=== PATIENT | male | born 1945 | race Caucasian/White ===

== ENCOUNTER 2017-10-18 05:19 | Inpatient (IN) | payer MEDICARE, OTHER ==
[2017-10-12 13:54] LABS: BASOPHILS % (AUTO) 0.3 % (0-1); EOSINOPHILS # (AUTO) 0.3 X10'3 (0-0.9); EOSINOPHILS % (AUTO) 3.2 % (0-6); LYMPHOCYTES % (AUTO) 24.6 % (21-51); MEAN CORPUSCULAR HEMOGLOBIN 28.2 PG (27.0-31.0); MEAN CORPUSCULAR HGB CONC 34.1 % (33.0-36.5); MEAN CORPUSCULAR VOLUME 82.5 FL (78-98); MEAN PLATELET VOLUME 9.8 FL (7.4-10.4); MONOCYTES # (AUTO) 0.5 X10'3 (0-0.9); MONOCYTES % (AUTO) 5.6 % (2-12); NEUTROPHILS # (AUTO) 5.4 X10'3 (1.8-7.7); NEUTROPHILS % (AUTO) 66.3 % (42-75); PRE OP HEMATOCRIT 47.3 % (42.0-52.0); PRE OP HEMOGLOBIN 16.1 g/dL (14.0-17.9); PRE OP PLATELET COUNT 186 X10'3 (140-440); RED BLOOD COUNT 5.73 X10'6 (4.70-6.10); RED CELL DISTRIBUTION WIDTH 13.8 % (11.5-14.5)
[2017-10-12 13:59] LABS: CLARITY,URINE CLEAR (Clear); COLOR,URINE YELLOW (Yellow); GLUCOSE, URINE NEGATIVE (Neg); KETONES,URINE NEGATIVE (Neg); LEUKOCYTE ESTERASE ,URINE NEGATIVE (Neg); NITRITES, URINE NEGATIVE (Neg); OCCULT BLOOD,URINE NEGATIVE (Neg); PH,URINE 5.5 (4.8-8.0); PROTEIN,URINE NEGATIVE (Neg); UROBILINOGEN,URINE 0.2 E.U/dL (0.2-1.0)
[2017-10-12 14:05] LABS: UA COLLECTION TYPE CLN CATCH MIDSTREAM
[2017-10-12 14:18] LABS: ALBUMIN 3.9 G/DL (3.4-5.0); ALKALINE PHOSPHATASE 69 IU/L (46-116); BLOOD UREA NITROGEN 33 MG/DL (7-18); BUN/CREATININE RATIO 21.3 (5.4-32.0); CHLORIDE 105 MMOL/L (99-107); CREATININE 1.55 MG/DL (0.60-1.10); PRE OP ALT 48 U/L (30-65); PRE OP ANION GAP 9 (8-16); PRE OP AST 20 U/L (10-37); PRE OP BILIRUB, TOTAL 0.5 MG/DL (0.0-1.0); PRE OP GLUCOSE 109 MG/DL (70-104); PRE OP POTASSIUM 4.5 MMOL/L (3.4-5.1); PRE OP SODIUM 139 MMOL/L (135-145); TOTAL CARBON DIOXIDE 25.4 MMOL/L (24-32); TOTAL PROTEIN 7.8 G/DL (6.4-8.2); eGFR 45 ML/MIN
[2017-10-18] VITALS (23 sets, daily range): BP systolic 83–147; BP diastolic 52–85
[~2017-10-18] VITALS: Ht 170.2 cm; Wt 139.9 kg
[~2017-10-18 05:19] MED LIST: AMLO10TA PO; BENA40TA2 PO; HYDR50TA3 PO; METO-395 PO; ringers solution, lacted 1,000 ML IV SCH
[2017-10-18] MEDS ORDERED: metoclopramide 5 mg/ml inj IV ONE (05:30)
[2017-10-18] MEDS ORDERED: tranexamic acid inj. 1,000 MG in normal saline 100ml IV soln 90 ML IV ONE (05:30)
[2017-10-18] MEDS ORDERED: acetaminophen 325mg tablet PO ONE (05:30)
[2017-10-18] MEDS ORDERED: oxyCODONE SR 10mg (sust. release) tab PO ONE (05:30)
[2017-10-18] MEDS ORDERED: gabapentin 300mg capsule PO ONE (05:30)
[2017-10-18] MEDS ORDERED: famotidine 20mg tablet PO ONE (05:30)
[2017-10-18] MEDS ORDERED: vancomycin inj 1,500 MG in normal saline 300ml IV soln IV ONE (05:30)
[2017-10-18] MEDS ORDERED: DOCUMENT DATE & TIME OF BETA-BLOCKER PO ONE (05:30)
[2017-10-18] MEDS ORDERED: ceFAZolin inj. 3,000 MG in dextrose 5%-water 100 ML IV ONE (05:30)
[2017-10-18] MEDS ORDERED: LIDOcaine 1% (10mg/ml) 2ml vial ONE (05:37)
[2017-10-18] MEDS ORDERED: ROPIVAcaine 0.5% (5mg/ml) 30ml vial ONE (06:53)
[2017-10-18] MEDS ORDERED: ceFAZolin 1000mg inj ONE (06:53)
[2017-10-18] MEDS ORDERED: ketorolac trometh. 30mg/ml inj. ONE (06:53)
[2017-10-18] MEDS ORDERED: vancomycin 1,000mg inj ONE (06:53)
[2017-10-18] MEDS ORDERED: morphine /PF 1mg/ml 10ml inj. ONE ×2 (07:00→07:52)
[2017-10-18] MEDS ORDERED: cloNIDine hcl/PF 100mcg/ml inj ONE (07:27)
[2017-10-18] MEDS ORDERED: MIDAZolam 1mg/ml 10ml vial ONE (07:33)
[2017-10-18] MEDS ORDERED: fentaNYL/PF 50MCG/1 ML 2ML syringe ONE (07:33)
[2017-10-18] MEDS ORDERED: ringers solution, lacted 1,000 ML IV SCH (08:53)
[2017-10-18] MEDS ORDERED: naloxone 2mg/2ml inj 2 MG in normal saline 500ml IV soln 500 ML IV PRN (08:54)
[2017-10-18] MEDS ORDERED: morphine 4 MG/ML inj SYRINge IV PRN ×2 (08:55)
[2017-10-18] MEDS ORDERED: proCHLORperazine 10 MG/2 ml inj IV PRN (08:55)
[2017-10-18] MEDS ORDERED: ondansetron/PF 4mg/2ml inj IV PRN ×3 (08:55→10:30)
[2017-10-18] MEDS ORDERED: meperidine/PF 50mg/ml syringe IV PRN ×3 (08:55)
[2017-10-18] MEDS ORDERED: diphenhydrAMINE 50 mg/ml inj IV PRN (08:55)
[2017-10-18] MEDS ORDERED: dexamethasone sod phosphate 4mg/ml inj. ONE (10:25)
[2017-10-18] MEDS ORDERED: glycopyrrolate 0.2mg/ml inj ONE (10:25)
[2017-10-18] MEDS ORDERED: propofol 10mg/ml 20ml vial IV ONE (10:25)
[2017-10-18] MEDS ORDERED: rocuronium 10mg/ml inj IV ONE (10:25)
[2017-10-18] MEDS ORDERED: ePHEDrine 50MG/ML INJ. ONE (10:25)
[2017-10-18] MEDS ORDERED: neostigmine methylsulfate 1 MG/ML 10ml vial ONE (10:25)
[2017-10-18] MEDS ORDERED: sevoflurane 250ml liquid IH ONE (10:25)
[2017-10-18] MEDS ORDERED: ondansetron/PF 4mg/2ml inj ONE (10:25)
[2017-10-18] MEDS ORDERED: bisacodyl 10mg suppository rectal RC PRN (10:30)
[2017-10-18] MEDS ORDERED: diphenhydrAMINE 25mg capsule PO PRN ×2 (10:30)
[2017-10-18] MEDS ORDERED: oxyCODONE IR 5mg (immed. release) tablet PO PRN (10:30)
[2017-10-18] MEDS ORDERED: HYDROmorphone inj. 0.5 MG/0.5 ML DISP.SYRIN IV PRN ×2 (10:30)
[2017-10-18] MEDS ORDERED: acetaminophen 325mg tablet PO PRN (10:30)
[2017-10-18] MEDS ORDERED: magnesium hydroxide 30ml (MOM) UD suspension PO PRN (10:30)
[2017-10-18] MEDS ORDERED: tranexamic acid inj. 1,400 MG in normal saline 100ml IV soln 100 ML IV ONE (13:00)
[2017-10-18] MEDS: gabapentin 300mg capsule PO SCH ×2 (14:21→21:00)
[2017-10-18] MEDS: acetaminophen 325mg tablet PO SCH ×2 (14:22→20:00)
[2017-10-18] MEDS: ceFAZolin 1GM/D5W- ADD-VANTAGE 50 ML IV SCH (17:10)
[2017-10-18] MEDS: potassium cl 20mEq in 1/2 NS 1,000 ML IV SCH ×2 (17:11→18:27)
[2017-10-18] MEDS: celeCOXIB 100mg capsule PO SCH (20:00)
[2017-10-18] MEDS ORDERED: vancomycin/NS 1 GM ADD-VANTAGE 250 ML IV SCH (20:00)
[2017-10-18] MEDS: sennosides 8.6mg tablet PO SCH (21:00)
[2017-10-19] MEDS: ceFAZolin 1GM/D5W- ADD-VANTAGE 50 ML IV SCH (00:11)
[2017-10-19 02:00] VITALS: BP 124/74
[2017-10-19 02:16] VITALS: BP 124/74
[2017-10-19] MEDS: potassium cl 20mEq in 1/2 NS 1,000 ML IV SCH ×3 (02:19→18:27)
[2017-10-19] MEDS: acetaminophen 325mg tablet PO SCH ×4 (02:23→22:09)
[2017-10-19 06:00] VITALS: BP_SYST 120; BP_SYST 131; BP_DIAS 66; BP_DIAS 74
[2017-10-19 06:13] LABS: BASOPHILS % (AUTO) 0 % (0-1); EOSINOPHILS # (AUTO) 0.2 X10'3 (0-0.9); EOSINOPHILS % (AUTO) 1.7 % (0-6); HEMOGLOBIN 12.7 g/dl (14.0-17.9); MEAN CORPUSCULAR HEMOGLOBIN 28.2 PG (27.0-31.0); MEAN CORPUSCULAR HGB CONC 34.3 % (33.0-36.5); MEAN CORPUSCULAR VOLUME 82.4 FL (78-98); MEAN PLATELET VOLUME 9.5 FL (7.4-10.4); MONOCYTES % (AUTO) 7.5 % (2-12); NEUTROPHILS # (AUTO) 10.7 X10'3 (1.8-7.7); NEUTROPHILS % (AUTO) 82.8 % (42-75); PLATELET COUNT 152 X10'3 (140-440); RED CELL DISTRIBUTION WIDTH 13.8 % (11.5-14.5); WHITE BLOOD COUNT 12.9 X10'3 (4.5-11.0)
[2017-10-19 06:28] LABS: ANION GAP 10 (8-16); CHLORIDE 106 MMOL/L (99-107); POTASSIUM 5.6 MMOL/L (3.5-5.1); SODIUM 139 MMOL/L (135-145); TOTAL CARBON DIOXIDE 22.8 MMOL/L (24-32)
[2017-10-19] MEDS: lisinopril 10 MG tablet PO SCH (08:31)
[2017-10-19] MEDS: metoprolol succinate 25mg (24-HOUR) SR. Tablet PO SCH (08:31)
[2017-10-19] MEDS: HYDROchlorothiazide 25mg tablet PO SCH (08:31)
[2017-10-19] MEDS: celeCOXIB 100mg capsule PO SCH ×2 (08:31→22:08)
[2017-10-19] MEDS: amLODIPine 5mg tablet PO SCH (08:31)
[2017-10-19] MEDS: gabapentin 300mg capsule PO SCH ×3 (08:32→22:08)
[2017-10-19] MEDS: enoxaparin 40mg/0.4ml syringe SQ SCH (08:34)
[2017-10-19 10:00] VITALS: BP 123/59
[2017-10-19] MEDS: oxyCODONE IR 5mg (immed. release) tablet PO PRN ×3 (12:08→22:09)
[2017-10-19 18:00] VITALS: BP 116/42
[2017-10-19 22:00] VITALS: BP 139/73
[2017-10-19] MEDS: sennosides 8.6mg tablet PO SCH (22:08)
[2017-10-20] MEDS: acetaminophen 325mg tablet PO SCH ×2 (02:00→07:16)
[2017-10-20] MEDS: potassium cl 20mEq in 1/2 NS 1,000 ML IV SCH (02:27)
[2017-10-20 05:25] LABS: BASOPHILS % (AUTO) 0.4 % (0-1); EOSINOPHILS # (AUTO) 0.4 X10'3 (0-0.9); EOSINOPHILS % (AUTO) 3.3 % (0-6); HEMATOCRIT 35.6 % (42.0-52.0); HEMOGLOBIN 12.3 g/dl (14.0-17.9); LYMPHOCYTES # (AUTO) 1.7 X10'3 (1.1-4.8); MEAN CORPUSCULAR HEMOGLOBIN 28.5 PG (27.0-31.0); MEAN CORPUSCULAR HGB CONC 34.5 % (33.0-36.5); MEAN CORPUSCULAR VOLUME 82.6 FL (78-98); MEAN PLATELET VOLUME 10.6 FL (7.4-10.4); MONOCYTES # (AUTO) 1.2 X10'3 (0-0.9); MONOCYTES % (AUTO) 10.8 % (2-12); NEUTROPHILS # (AUTO) 8.1 X10'3 (1.8-7.7); NEUTROPHILS % (AUTO) 70.5 % (42-75); PLATELET COUNT 135 X10'3 (140-440); RED BLOOD COUNT 4.31 X10'6 (4.70-6.10); RED CELL DISTRIBUTION WIDTH 13.7 % (11.5-14.5); WHITE BLOOD COUNT 11.6 X10'3 (4.5-11.0)
[2017-10-20] MEDS: oxyCODONE IR 5mg (immed. release) tablet PO PRN (05:52)
[2017-10-20 06:00] VITALS: BP 160/81
[2017-10-20] MEDS: lisinopril 10 MG tablet PO SCH (07:17)
[2017-10-20] MEDS: celeCOXIB 100mg capsule PO SCH (07:18)
[2017-10-20] MEDS: gabapentin 300mg capsule PO SCH (07:18)
[2017-10-20] MEDS: HYDROchlorothiazide 25mg tablet PO SCH (07:19)
[2017-10-20] MEDS: amLODIPine 5mg tablet PO SCH (07:19)
[2017-10-20] MEDS: metoprolol succinate 25mg (24-HOUR) SR. Tablet PO SCH (07:20)
[2017-10-20] MEDS: enoxaparin 40mg/0.4ml syringe SQ SCH (07:20)
[2017-10-20 10:00] VITALS: BP 121/73
[2017-10-20] MEDS ORDERED: acetaminophen 325mg tablet PO PRN (10:30)
== END 2017-10-20 11:40 | disposition home or self-care (01) | DRG 470 ==
LOC: PAS IN 05:19 → EDSTATUS 07:30 → ORTHO 4S 13:25
PROVIDERS: ADMIT Orthopaedic Surgery; ATTEND Orthopaedic Surgery
PROC: 3E0T3BZ Introduction of Anesthetic Agent into Peripheral Nerves and Plexi, Percutaneous Approach (ICD-10-PCS; 2017-10-18)
PROC: 8E0YXCZ Robotic Assisted Procedure of Lower Extremity (ICD-10-PCS; 2017-10-18)
PROC: 0SRC069 Replacement of Right Knee Joint with Oxidized Zirconium on Polyethylene Synthetic Substitute, Cemented, Open Approach (ICD-10-PCS; principal; 2017-10-18 07:45)
DX: M17.11 Unilateral primary osteoarthritis, right knee (principal); D62 Acute posthemorrhagic anemia; Z68.42 Body mass index [BMI] 45.0-49.9, adult; E66.9 Obesity, unspecified; K21.9 Gastro-esophageal reflux disease without esophagitis; I12.9 Hypertensive chronic kidney disease with stage 1 through stage 4 chronic kidney disease, or unspecified chronic kidney disease; N18.9 Chronic kidney disease, unspecified; Z96.652 Presence of left artificial knee joint; Z79.899 Other long term (current) drug therapy; Z87.891 Personal history of nicotine dependence
CPT/HCPCS: 36415; 80051; 80053; 81003; 85025; 87070; 93005; 97110; 97116; 97161; A6455; A7000; C1713; C1758; C1776; C9250; J0690; J0735; J1100; J1170; J1650; J1885; J2250; J2274; J2310; J2405; J2704; J2710; J2765; J2795; J3010; J3370; J3490; J7030; J7060; J7120